=== PATIENT | male | born 1950 | race Caucasian/White ===

== ENCOUNTER 2018-08-05 06:55 | Outpatient (CLI) | payer MEDICARE ==
[~2018-08-05] VITALS: Ht 177.8 cm; Wt 68.0 kg
[~2018-08-05 06:55] MED LIST: ASPI-86 PO; ATOR80TA2 PO; CARV6.252 PO; CPR500T PO; LISI10TA PO; PHEN200T27 PO; TAMS0.4C2 PO
[2018-08-06] MEDS ORDERED: LORA10TA7 PO (09:59)
[2018-08-06] MEDS ORDERED: ASPI-808 PO (09:59)
[2018-08-06] MEDS ORDERED: MECL-106 PO (09:59)
[2018-08-06] MEDS ORDERED: GABA-486 PO (09:59)
[2018-08-06] MEDS ORDERED: UBID200C16 PO (09:59)
[2018-08-06] MEDS ORDERED: PANT40TA3 PO (09:59)
[2018-08-06] MEDS ORDERED: RANI150T46 PO (09:59)
[2018-08-06] MEDS ORDERED: ATOR40TA PO (09:59)
[2018-08-06] MEDS ORDERED: NITR0.4T39 SL (09:59)
[2018-08-06] MEDS ORDERED: AMLO5TAB4 PO (09:59)
[2018-08-06] MEDS ORDERED: FINA5TAB6 PO (09:59)
[2018-08-06] MEDS ORDERED: MONT10TA21 PO (09:59)
[2018-08-06] MEDS ORDERED: FLUT9.9S NS (09:59)
== END 2018-08-06 13:14 ==
LOC: PREOP 06:55
PROVIDERS: ATTEND Specialist
DX: Z01.818 Encounter for other preprocedural examination (principal)

== ENCOUNTER 2018-08-08 09:14 | Day surgery (SDC) | payer MEDICARE ==
[~2018-08-08] VITALS: Ht 177.8 cm; Wt 68.0 kg
[~2018-08-08 09:14] MED LIST changes: +AMLO5TAB4 PO; +ASPI-808 PO; +ATOR40TA PO; +FINA5TAB6 PO; +FLUT9.9S NS; +GABA-486 PO; +LORA10TA7 PO; +MECL-106 PO; +MONT10TA21 PO; +NITR0.4T39 SL; +PANT40TA3 PO; +RANI150T46 PO; +UBID200C16 PO
--- OUTSIDE RECORDS SUMMARY | 2018-08-08 09:17 | XMS REPORT ---
Author Author FOSTERCHUY GARNICA [facility] Address Unknown Care Team Providers Care Pc Installation Engineer Name Role Phone CHUY RAMOS Unavailable PROBLEMS Unknown Problems ALLERGIES No Information ENCOUNTERS Encounter Location Date Diagnosis [facility] [id number] [place] [address] [phone] Apr, Dental examination Z01.20 [facility] [address] [place] [address] [phone] Nov, Dental examination Z01.20 [facility] [id number] [place] [address] [phone] Nov, [facility] [id number] [place] [address] [phone] Oct, Dental examination Z01.20 [facility] [id number] [place] [address] [phone] Mar, Dental examination Z01.20 [facility] [id number] [place] [address] [phone] Feb, Dental examination Z01.20 [facility] [id number] [place] [address] [phone] Oct, Dental examination Z01.20 [facility] [id number] [place] [address] [phone] August, Dental examination Z01.20 [facility] [id number] [place] [address] [phone] Jul, Encounter for dental examination Z01.20 [facility] [id number] [place] [address] [phone] Jan, Encounter for dental examination Z01.20 [facility] [id number] [place] [address] [phone] Sep, Dental examination V72.2 [facility] [address] [id number] [place] [phone] August, Dental examination V72.2 IMMUNIZATIONS No Known Immunizations SOCIAL HISTORY Never Assessed REASON FOR VISIT Schedule appt. PLAN OF CARE VITAL SIGNS MEDICATIONS No Known Medications RESULTS No Results PROCEDURES No Known procedures INSTRUCTIONS MEDICATIONS ADMINISTERED No Known Medications MEDICAL (GENERAL) HISTORY Type Description Date Medical History open heart surgery 01/31/10 Medical History righr carotid artery 04-20-2011 Medical History arthritis Surgical History open heart 01-31-2010 Surgical History right carotid artery 04-20-2011 Hospitalization History Hospitalization for surgery only
--- OUTSIDE RECORDS SUMMARY | 2018-08-08 09:17 | XMS REPORT ---
Author MELY Holt [facility] eClinicalWorks Address Unknown Phone Unavailable Care Team Providers Care Quality Engineer Medical Device Name Role Phone MELY MARTINEZ CP Unavailable Allergies No Known Allergies Problems Problem Type Condition Code Onset Dates Condition Status Assessment Dental examination Z01.20 Active Problem Encounter for dental examination Z01.20 Active Medications No Known Medications Procedures Procedure Coding System Code Date Billing Notes on claim CPT-4 EC109 September 01, 2015 Results No Known Results Summary Purpose eClinicalWorks Submission
--- OUTSIDE RECORDS SUMMARY | 2018-08-08 09:17 | XMS REPORT ---
Author Author FOSTERCHUY GARNICA [facility] Address Unknown Care Team Providers Care Sheet Metal Assembler And Riveter Name Role Phone CHUY RAMOS Unavailable PROBLEMS Unknown Problems ALLERGIES Substance Reaction Event Type Date Status Sulfa Unknown Non Drug Allergy Nov, Active ENCOUNTERS Encounter Location Date Diagnosis [facility] [id number] [place] [address] [phone] Apr, Dental examination Z01.20 [facility] [address] [id number] [place] [address] [phone] Nov, Dental examination Z01.20 [facility] [address] [id number] [place] [address] [phone] Nov, [facility] [id number] [place] [address] [phone] Oct, Dental examination Z01.20 [facility] [id number] [place] [address] [phone] Mar, Dental examination Z01.20 [facility] [id number] [place] [address] [phone] Feb, Dental examination Z01.20 [facility] [address] [id number] [place] [address] [phone] Oct, Dental examination Z01.20 [facility] [address] [id number] [place] [address] [phone] August, Dental examination Z01.20 [facility] [address] [id number] [place] [address] [phone] Jul, Encounter for dental examination Z01.20 [facility] [address] [id number] [place] [address] [phone] Jan, Encounter for dental examination Z01.20 [facility] [address] [facility] [id number] [place] [phone] Sep, Dental examination V72.2 [facility] [address] [id number] [place] [phone] August, Dental examination V72.2 IMMUNIZATIONS No Known Immunizations SOCIAL HISTORY Never Assessed REASON FOR VISIT filling PLAN OF CARE Activity Details Follow Up prn Reason:6 MONTH PROPHY VITAL SIGNS Blood pressure systolic 124 mmHg 2016-12-04 Blood pressure diastolic 73 mmHg 2016-12-04 MEDICATIONS Medication Instructions Dosage Frequency Start Date End Date Duration Status Lisinopril Active Norvasc Active Aspir-81 Active Gabapentin Active Zyrtec Allergy 10 MG Orally Once a day 1 tablet 24h Active Simethicone Active Lipitor Active Meclizine HCl 25 MG Orally Once a day 1 tablet as needed 24h Active Flonase Active Tamsulosin HCl Active Finasteride Active RESULTS No Results PROCEDURES Procedure Date Ordered Result Body Site AMALGAM-ONE SURFACE PRIMARY/PERM Dec 04, 2016 INSTRUCTIONS MEDICATIONS ADMINISTERED No Known Medications MEDICAL (GENERAL) HISTORY Type Description Date Medical History open heart surgery 01/31/10 Medical History righr carotid artery 04-20-2011 Medical History arthritis Surgical History open heart 01-31-2010 Surgical History right carotid artery 04-20-2011 Hospitalization History Hospitalization for surgery only
--- OUTSIDE RECORDS SUMMARY | 2018-08-08 09:17 | XMS REPORT ---
Author Author CHUY RAMOS [facility] Address Unknown Care Team Providers Care Parks Recreation Coordinator Name Role Phone CHUY RAMOS Unavailable PROBLEMS Type Condition ICD9-CM Code DIP19-TI Code Onset Dates Condition Status SNOMED Code Problem Encounter for dental examination Z01.20 Active 354006847 ALLERGIES Substance Reaction Event Type Date Status Sulfa Unknown Non Drug Allergy Feb, Active SOCIAL HISTORY No smoking Hx information available PLAN OF CARE Activity Details Follow Up prn Reason:prophy VITAL SIGNS Blood pressure systolic 143 mmHg 2016-02-28 Blood pressure diastolic 90 mmHg 2016-02-28 MEDICATIONS Medication Instructions Dosage Frequency Start Date End Date Duration Status Aspir-81 Active Lipitor Active Lisinopril Active Gabapentin Active Carvedilol Active Tamsulosin HCl Active Finasteride Active Meclizine HCl 25 MG Orally Once a day 1 tablet as needed 24h Active RESULTS No Results PROCEDURES Procedure Date Ordered Related Diagnosis Body Site Dental no charge Feb 28, 2016 IMMUNIZATIONS No Known Immunizations
--- OUTSIDE RECORDS SUMMARY | 2018-08-08 09:17 | XMS REPORT ---
Author Author MELY MARTINEZ Organization eClinicalWorks Address Unknown Phone Unavailable Care Team Providers Care Quality Assurance Coordinator Name Role Phone MELY MARTINEZ CP Unavailable Allergies, Adverse Reactions, Alerts Substance Reaction Event Type Sulfa Info Not Available Non Drug Allergy Problems Problem Type Condition Code Onset Dates Condition Status Assessment Dental examination Z01.20 Active Problem Encounter for dental examination Z01.20 Active Medications Medication Code System Code Instructions Start Date End Date Status Dosage Loratadine [facility] [address]-84 10 MG Orally Once a day 1 tablet Tamsulosin HCl [facility] [address]-72 not defined Lisinopril [facility] [address]-23 not defined Lipitor [facility] [address]-35 not defined Aspir-81 [facility] [address]-14 not defined Carvedilol [facility] [address]-58 not defined Finasteride [facility] [address]-69 not defined Meclizine HCl [facility] [address]-66 25 MG Orally Once a day 1 tablet as needed Procedures Procedure Coding System Code Date RESIN COMPOS - 1 SURFACE POSTERIOR CPT-4 D2391 October 31, 2015 Billing Notes on claim CPT-4 EC109 October 31, 2015 AMALGAM-ONE SURFACE PRIMARY/PERM CPT-4 D2140 October 31, 2015 Vital Signs Date/Time: October 31, 2015 Blood Pressure Diastolic 84 mmHg Blood Pressure Systolic 147 mmHg Results No Known Results Summary Purpose eClinicalWorks Submission
--- OUTSIDE RECORDS SUMMARY | 2018-08-08 09:17 | XMS REPORT ---
Author Author ELIUD ERNANDEZ [facility] Address [address] [place] [address] Phone Unavailable Care Team Providers Care Green Belt Name Role Phone ELIUD ERNANDEZ Unavailable Unavailable PROBLEMS Unknown Problems ALLERGIES Substance Reaction Event Type Date Status Sulfa Unknown Non Drug Allergy Oct, Active ENCOUNTERS Encounter Location Date Diagnosis [facility] [id number] [place] [address] [phone] Apr, Dental examination Z01.20 [facility] [id number] [place] [address] [phone] Nov, Dental examination Z01.20 [facility] [address] [id number] [place] [address] [phone] Nov, [facility] [id number] [place] [address] [phone] Oct, Dental examination Z01.20 [facility] [id number] [place] [address] [phone] Mar, Dental examination Z01.20 [facility] [id number] [place] [address] [phone] Feb, Dental examination Z01.20 [facility] [id number] [place] [address] [phone] Oct, Dental examination Z01.20 [facility] [id number] [place] [address] [phone] August, Dental examination Z01.20 [facility] [address] [id number] [place] [address] [phone] Jul, Encounter for dental examination Z01.20 [facility] [address] [id number] [place] [phone] Jan, Encounter for dental examination Z01.20 [facility] [address] [facility] [id number] [place] [phone] Sep, Dental examination V72.2 [facility] [address] [id number] [place] [phone] August, Dental examination V72.2 IMMUNIZATIONS No Known Immunizations SOCIAL HISTORY Never Assessed REASON FOR VISIT 6 MO RECALL PLAN OF CARE Activity Details Follow Up [email or web address] Reason:restore VITAL SIGNS MEDICATIONS Medication Instructions Dosage Frequency Start Date End Date Duration Status Finasteride Active Tamsulosin HCl Active Meclizine HCl 25 MG Orally Once a day 1 tablet as needed 24h Active Zyrtec Allergy 10 MG Orally Once a day 1 tablet 24h Active Lisinopril Active Aspir-81 Active Carvedilol Active Flonase Active Lipitor Active Gabapentin Active Simethicone Active RESULTS No Results PROCEDURES Procedure Date Ordered Result Body Site PERIODIC ORAL EXAMINATION October 19, 2016 PROPHYLAXIS - ADULT October 19, 2016 INSTRUCTIONS MEDICATIONS ADMINISTERED No Known Medications MEDICAL (GENERAL) HISTORY Type Description Date Medical History open heart surgery 01/31/10 Medical History righr carotid artery 04-20-2011 Medical History arthritis Surgical History open heart 01-31-2010 Surgical History right carotid artery 04-20-2011 Hospitalization History Hospitalization for surgery only
--- OUTSIDE RECORDS SUMMARY | 2018-08-08 09:17 | XMS REPORT ---
Author Author ELIUD ERNANDEZ Organization [facility] Address [address] [place] [address] Phone Unavailable Care Team Providers Care Bore Mill Operator Name Role Phone ELIUD ERNANDEZ Unavailable Unavailable PROBLEMS Unknown Problems ALLERGIES Substance Reaction Event Type Date Status Sulfa Unknown Non Drug Allergy Jan, Active ENCOUNTERS Encounter Location Date Diagnosis [facility] [id number] [place] [address] [phone] Jan, Dental examination Z01.20 and Oral health maintenance status requiring routine preventive dental care K08.9 [facility] [id number] [place] [address] [phone] Apr, Dental examination Z01.20 [facility] [address] [id number] [place] [address] [phone] Nov, Dental examination Z01.20 [facility] [id number] [place] [phone] Nov, [facility] [id number] [place] [address] [phone] Oct, Dental examination Z01.20 [facility] [address] [id number] [place] [address] [phone] Mar, Dental examination Z01.20 [facility] [id number] [place] [address] [phone] Feb, Dental examination Z01.20 [facility] [id number] [place] [address] [phone] Oct, Dental examination Z01.20 [facility] [id number] [place] [address] [phone] August, Dental examination Z01.20 [facility] [address] [id number] [place] [address] [phone] Jul, Encounter for dental examination Z01.20 [facility] [address] [id number] [place] [phone] Jan, Encounter for dental examination Z01.20 [facility] [address] [id number] [place] [phone] Sep, Dental examination V72.2 [facility] [address] [id number] [place] [phone] August, Dental examination V72.2 IMMUNIZATIONS No Known Immunizations SOCIAL HISTORY Never Assessed REASON FOR VISIT 6 [facility] PLAN OF CARE Activity Details Follow Up 6 Months Reason:recall VITAL SIGNS Blood pressure systolic 120 mmHg 2018-02-05 Blood pressure diastolic 68 mmHg 2018-02-05 MEDICATIONS Medication Instructions Dosage Frequency Start Date End Date Duration Status Gabapentin Active Lipitor Active Finasteride Active Tamsulosin HCl Active Norvasc Active Lisinopril Not-Taking Meclizine HCl 25 MG Orally Once a day 1 tablet as needed 24h Active Simethicone Active Zyrtec Allergy 10 MG Orally Once a day 1 tablet 24h Active Flonase Active Aspir-81 Active Loratadine 10 MG Orally Once a day 1 tablet 24h Active Carvedilol Not-Taking RESULTS No Results PROCEDURES Procedure Date Ordered Result Body Site PERIODIC ORAL EXAMINATION Feb 05, 2018 BITEWINGS - FOUR FILMS Feb 05, 2018 TOPICAL FLUORIDE VARNISH Feb 05, 2018 PROPHYLAXIS - ADULT Feb 05, 2018 CARIES RISK ASSESS DOC FIND LOW RSK Feb 05, 2018 INSTRUCTIONS MEDICATIONS ADMINISTERED No Known Medications MEDICAL (GENERAL) HISTORY Type Description Date Medical History open heart surgery 01/31/10 Medical History righr carotid artery 04-20-2011 Medical History arthritis Surgical History open heart 01-31-2010 Surgical History right carotid artery 04-20-2011 Hospitalization History Hospitalization for surgery only
--- OUTSIDE RECORDS SUMMARY | 2018-08-08 09:18 | XMS REPORT ---
Author Author ELIUD ERNANDEZ [facility] Address [address] [address] Phone Unavailable Care Team Providers Care Grain Scooper Name Role Phone ELIUD ERNANDEZ Unavailable Unavailable PROBLEMS Type Condition ICD9-CM Code KBP02-PM Code Onset Dates Condition Status SNOMED Code Problem Encounter for dental examination Z01.20 Active [id number] ALLERGIES Substance Reaction Event Type Date Status Sulfa Unknown Non Drug Allergy Mar, Active SOCIAL HISTORY No smoking Hx information available PLAN OF CARE VITAL SIGNS Blood pressure systolic 146 mmHg 2016-03-27 Blood pressure diastolic 79 mmHg 2016-03-27 MEDICATIONS Medication Instructions Dosage Frequency Start Date End Date Duration Status Lisinopril Active Carvedilol Active Aspir-81 Active Gabapentin Active Finasteride Active Lipitor Active Tamsulosin HCl Active Zyrtec Allergy 10 MG Orally Once a day 1 tablet 24h Active Meclizine HCl 25 MG Orally Once a day 1 tablet as needed 24h Active RESULTS No Results PROCEDURES Procedure Date Ordered Related Diagnosis Body Site PROPHYLAXIS - ADULT Mar 27, 2016 TOPICAL FLUORIDE VARNISH Mar 27, 2016 IMMUNIZATIONS No Known Immunizations
--- OUTSIDE RECORDS SUMMARY | 2018-08-08 09:18 | XMS REPORT ---
Author CATHY Lopez Organization eClinicalWorks Address Unknown Phone Unavailable Care Team Providers Care Rn Transition Name Role Phone CATHY QUISPE CP Unavailable Allergies, Adverse Reactions, Alerts Substance Reaction Event Type Sulfa Info Not Available Non Drug Allergy Problems Problem Type Condition Code Onset Dates Condition Status Assessment Encounter for dental examination Z01.20 Active Problem Encounter for dental examination Z01.20 Active Medications Medication Code System Code Instructions Start Date End Date Status Dosage Tamsulosin HCl [facility] [address]-66 not defined Finasteride [facility] [address]-54 not defined Aspir-81 [facility] [address]-26 not defined Carvedilol [facility] [address]-40 not defined Lisinopril [facility] [address]-88 not defined Lipitor [facility] [address]-94 not defined Procedures Procedure Coding System Code Date TOPICAL FLUORIDE VARNISH CPT-4 D1206 Jan 10, 2015 PROPHYLAXIS - ADULT CPT-4 D1110 Jan 10, 2015 Vital Signs Date/Time: Jan 10, 2015 Blood Pressure Diastolic 92 mmHg Blood Pressure Systolic 159 mmHg Results No Known Results Summary Purpose eClinicalWorks Submission
--- OUTSIDE RECORDS SUMMARY | 2018-08-08 09:18 | XMS REPORT | Continuity of Care Document ---
Author Author [facility] Organization [facility] Address Unknown Phone Unavailable Care Team Providers Care .Net Developer Name Role Phone COLEEN RICK MD PP Insurance Providers Payer Name Policy Number Subscriber Name Relationship Unknown Crow [place] Advance Directives Directive Response Recorded Date Advance Directives N 11/12/12 5:25pm Problems No Known Problems or Medical conditions. Social History History Response Recorded Date/Time Alcohol Use Occasionally Uses 11/12/12 5: 25pm Recreational Drug Use N 11/12/12 5:25pm Allergies, Adverse Reactions, Alerts Allergen Type Severity Reaction Last Updated Sulfa (Sulfonamide Antibiotics) Allergy Intermediate HIVES 11/12/12 Medications Medication Dose Units Route Sig Qty Days Phenazopyridine HCl (Pyridium) 1 Each PO TID PRN 15 Tamsulosin Hcl 0.4 Mg PO DAILY Ciprofloxacin (Cipro Tablet (Non-Formulary)) 500 Mg PO BID Aspirin ([facility] Aspirin) 81 Mg PO DAILY Carvedilol 1 Each PO BID Atorvastatin Calcium (Lipitor) 80 Mg PO DAILY Lisinopril (Prinivil) 10 Mg PO DAILY Immunizations Name Given Type Date of Pneumonia Vaccine 01/06/10 H Response Recorded Date/Time Status not known Unknown Results No Known Relevant Diagnostic Tests, Laboratory Data and/or Discharge Summary. Encounters Encounter Location Date/Time Departed Emergency Room [facility] 10/18 5:24pm
--- OUTSIDE RECORDS SUMMARY | 2018-08-08 09:18 | XMS REPORT | Continuity of Care Document ---
Author Organization Unknown Address Unknown Allergies Active Description Code Type Severity Reaction Onset Reported/Identified Relationship to Patient Clinical Status Yes SULFA (SULFONAMIDE ANTIBIOTICS) SULFA (SULFONAMIDE A MODERATE Yes SULFA (SULFONAMIDE ANTIBIOTICS) MODERATE DERMATOLOGICAL - TEODORA Yes Sulfa (Sulfonamide Antibiotics) [id number] Drug Allergy Moderate HIVES 10/2012 Medications Medication Packaging Start Date Stop Date Route Dosage Sig ONDANSETRON VIAL INJ 4 MG/2CC (ZOFRAN 2CC VIAL) MG 10/13/2016 10/13/2016 PRN ONCE ASA 81MG CHEWABLE TAB 81 MG (BABY ASPIRIN) MG 11/17/2016 11/17/2016 ONCE&1524 ENOXAPARIN SYRINGE INJ 40 MG (LOVENOX SYRINGE) MG 11/17/2016 11/17/2016 ONCE&1708 LACTATED RINGERS 1000CC IV BAG INJ ml 11/21/2016 11/28/2016 CONTINUOUSEVERY 0 Hour CARVEDILOL TAB 6.25 MG (COREG) Dose(s) 11/27/2016 12/04/2016 BID&0800,2000 LISINOPRIL TAB 10 MG (ZESTRIL) Dose(s) 11/28/2016 12/04/2016 Daily&0900 LACTATED RINGERS 1000CC IV BAG INJ ml 11/30/2016 12/01/2016 CONTINUOUSEVERY 0 Hour Problems Date Dx Coded Attending Type Code Diagnosis Diagnosed By 10/13/2016 Alex Flores 530.81 ESOPHAGEAL REFLUX 10/13/2016 Alex Flores 564.00 CONSTIPATION, UNSPECIFIED 10/13/2016 Alex Flores 789.07 ABDOMINAL PAIN, GENERALIZED 10/13/2016 Alex Flores K21.9 GASTRO-ESOPHAGEAL REFLUX DISEASE WITHOUT ESOPHAGITIS 10/13/2016 Alex Flores K59.00 CONSTIPATION, UNSPECIFIED 10/13/2016 Alex Flores R10.84 GENERALIZED ABDOMINAL PAIN 11/17/2016 Brokob, Jordyn W 272.4 OTHER AND UNSPECIFIED HYPERLIPIDEMIA 11/17/2016 Jordyn Dennison W 401.0 MALIGNANT ESSENTIAL HYPERTENSION 11/17/2016 Jordyn Dennison W 414.01 CORONARY ATHEROSCLEROSIS OF [place] CORONARY ARTERY 11/17/2016 Jordyn Dennison A 780.4 11/17/2016 SiddharthabJordyn W 787.02 11/17/2016 Edmond Dennisonya W 790.5 OTHER NONSPECIFIC ABNORMAL SERUM ENZYME LEVELS 11/17/2016 Jordyn Dennison W E78.5 HYPERLIPIDEMIA, UNSPECIFIED 11/17/2016 Siddharthab, Jordyn W I10 ESSENTIAL (PRIMARY) HYPERTENSION 11/17/2016 Jordyn Dennison W I25.10 ATHSCL HEART DISEASE OF [place] CORONARY ARTERY W/O ANG PCTRS 11/17/2016 Siddharthajesus albertoJordyn W R11.0 NAUSEA 11/17/2016 Luis DanielJordyn pearce A R42 DIZZINESS AND GIDDINESS 11/17/2016 Siddharthajesus alberto Jordyn W R74.8 ABNORMAL LEVELS OF OTHER SERUM ENZYMES 11/30/2016 Wan Campbell W 530.81 ESOPHAGEAL REFLUX 11/30/2016 Wan Campebll W 535.50 UNSPECIFIED GASTRITIS AND GASTRODUODENITIS, WITHOUT MENTION OF HEMORRHAGE 11/30/2016 Wan Campbell W 552.3 DIAPHRAGMATIC HERNIA WITH OBSTRUCTION 11/30/2016 Wan Campbell W K21.9 GASTRO-ESOPHAGEAL REFLUX DISEASE WITHOUT ESOPHAGITIS 11/30/2016 Wan Campbell W K29.60 OTHER GASTRITIS WITHOUT BLEEDING 11/30/2016 Wan Campbell W K44.9 DIAPHRAGMATIC HERNIA WITHOUT OBSTRUCTION OR GANGRENE 08/13/2017 Omer Landrum W 789.00 ABDOMINAL PAIN, UNSPECIFIED SITE 08/13/2017 Omer Landrum W R10.9 UNSPECIFIED ABDOMINAL PAIN 08/13/2017 Omer Landrum W 789.00 ABDOMINAL PAIN, UNSPECIFIED SITE 08/13/2017 Omer Landrum W 911.4 INSECT BITE, NONVENOMOUS OF TRUNK, WITHOUT MENTION OF INFECTION 08/13/2017 Omer Landrum W R10.9 UNSPECIFIED ABDOMINAL PAIN 08/13/2017 Omer Landrum W S30.860A INSECT BITE (NONVENOMOUS) OF LOWER BACK AND PELVIS, INITIAL ENCOUNTER 08/13/2017 Landrum, Adamu W 401.9 08/13/2017 Landrum, Adamu W 461.9 ACUTE SINUSITIS, UNSPECIFIED 08/13/2017 Landrum, Caity-Maren W 536.8 DYSPEPSIA AND OTHER SPECIFIED DISORDERS OF FUNCTION OF STOMACH 08/13/2017 Landrum, Caity-Maren W 789.00 ABDOMINAL PAIN, UNSPECIFIED SITE 08/13/2017 Landrum, Caity-Maren W 790.5 08/13/2017 Landrum, Caity-Maren W 911.4 INSECT BITE, NONVENOMOUS OF TRUNK, WITHOUT MENTION OF INFECTION 08/13/2017 Landrum, Caity-Maren W I10 ESSENTIAL (PRIMARY) HYPERTENSION 08/13/2017 Landrum, Caity-Maren W J01.90 ACUTE SINUSITIS, UNSPECIFIED 08/13/2017 Landrum, Caity-Maren W K30 FUNCTIONAL DYSPEPSIA 08/13/2017 Landrum, Caity-Maren W R10.9 UNSPECIFIED ABDOMINAL PAIN 08/13/2017 Landrum, Caity-Maren W R74.8 ABNORMAL LEVELS OF OTHER SERUM ENZYMES 08/13/2017 Landrum, Caity-Maren W S30.860A INSECT BITE (NONVENOMOUS) OF LOWER BACK AND PELVIS, INITIAL ENCOUNTER 08/13/2017 Landrum, Adamu W 401.9 08/13/2017 Landrum, Caity-Maren W 461.9 ACUTE SINUSITIS, UNSPECIFIED 08/13/2017 Landrum, Caity-Maren W 536.8 08/13/2017 Landrum, Caity-Maren W 789.00 ABDOMINAL PAIN, UNSPECIFIED SITE 08/13/2017 Landrum, Caity-Maren W 790.5 08/13/2017 Landrum, Caity-Maren W 911.4 INSECT BITE, NONVENOMOUS OF TRUNK, WITHOUT MENTION OF INFECTION 08/13/2017 Landrum, Caity-Maren W I10 ESSENTIAL (PRIMARY) HYPERTENSION 08/13/2017 Landrum, Caity-Maren W J01.90 ACUTE SINUSITIS, UNSPECIFIED 08/13/2017 Landrum, Caity-Maren W K30 FUNCTIONAL DYSPEPSIA 08/13/2017 Landrum, Caity-Maren W R10.9 UNSPECIFIED ABDOMINAL PAIN 08/13/2017 Omer Landrum R74.8 ABNORMAL LEVELS OF OTHER SERUM ENZYMES 08/13/2017 Omer Landrum S30.860A INSECT BITE (NONVENOMOUS) OF LOWER BACK AND PELVIS, INITIAL ENCOUNTER 01/16/2018 Omer Landrum W 844.8 SPRAIN OF OTHER SPECIFIED SITES OF KNEE AND LEG 01/16/2018 Omer Landrum S86.112A STRAIN OF OTHER MUSCLE(S) AND TENDON(S) OF POSTERIOR MUSCLE GROUP AT LOWER LEG LEVEL, LEFT LEG, INITIAL ENCOUNTER 01/16/2018 Omer Landrum 844.8 SPRAIN OF OTHER SPECIFIED SITES OF KNEE AND LEG 01/16/2018 Omer Landrum S86.112A STRAIN OF OTHER MUSCLE(S) AND TENDON(S) OF POSTERIOR MUSCLE GROUP AT LOWER LEG LEVEL, LEFT LEG, INITIAL ENCOUNTER Procedures There is no data. Results Test Result Range Helicobacter Pylori - 06/01/16 11:55 H.Pylori Negative Negative Troponin I - 10/13/16 19:00 Troponin 0.022 ng/mL 0.000-0.400 Stress EKG - 11/05/16 07:40 Stress EKG Complete Protime - 11/16/16 11:28 INR 1.0 1.0-4.0 Protime 12.1 Sec 9.9-12.8 Comprehensive Metabolic Panel - 11/16/16 11:28 Albumin 4.3 g/dL 3.6-5.1 ALP 98 U/L 35-130 ALT 41 U/L 6-45 Anion Gap 12 6-14 AST 44 U/L 2-40 BUN 12 mg/dL 5-25 Calcium 10.1 mg/dL 8.3-10.4 Chloride 98 mmol/L 95-114 CO2 30 mEq/L 22-33 Creat 0.95 mg/dL 0.50-1.50 eGFR 79 mL/min/1.73m2 >59 Globulin 2.3 g/dL 2.3-3.5 Glucose 121 mg/dL 70-110 Osmo 282 280-295 Potassium 4.3 mmol/L 3.5-5.3 Sodium 136 mmol/L 134-148 TBil 0.7 mg/dL 0.2-1.2 TP 6.6 g/dL 6.0-8.3 Comprehensive Metabolic Panel - 11/17/16 15:14 Albumin 4.0 g/dL 3.6-5.1 ALP 101 U/L 35-130 ALT 40 U/L 6-45 Anion Gap 12 6-14 AST 44 U/L 2-40 BUN 15 mg/dL 5-25 Calcium 9.5 mg/dL 8.3-10.4 Chloride 100 mmol/L 95-114 CO2 28 mEq/L 22-33 Creat 1.18 mg/dL 0.50-1.50 eGFR 61 mL/min/1.73m2 >59 Globulin 2.1 g/dL 2.3-3.5 Glucose 153 mg/dL 70-110 Osmo 285 280-295 Potassium 4.3 mmol/L 3.5-5.3 Sodium 136 mmol/L 134-148 TBil 0.8 mg/dL 0.2-1.2 TP 6.1 g/dL 6.0-8.3 Urinalysis - 11/17/16 15:15 Icotest N/A Negative Urine Crystals Amorphous Material - 2+ Urine Volume Urine Volume Sufficient (10mL) Urine Yeast No Yeast present Urine-Appearance Clear Clear Urine-Bacteria Trace Urine-Bilirubin Negative Negative Urine-Blood Negative Negative Urine-Color Yellow Colorless-Lt. Yellow Urine-Epithelial Cells 0-5/HPF Urine-Glucose Negative Negative Urine-Ketones Negative Negative Urine-Leukocytes Negative Negative Urine-Nitrite Negative Negative Urine-pH 7.5 5-8.5 Urine-Protein 1+ Negative Urine-RBC 0-2/HPF Urine-Specific [place] 1.015 1.000-1.030 Urine-WBC 0-2/HPF Urobilinogen 0.2 E.U./dL 0.2-1.0 EKG - 11/17/16 17:30 EKG Complete Surgical Pathology - 11/30/16 09:49 Surg Path Sent to [place] [facility] Lipid Panel - 03/18/17 09:33 C/HDL 1.9 3.7-6.7 Cholesterol 170 mg/dL 100-240 HDL 88 mg/dL 30-85 LDL-Calculated 69 mg/dL 0-100 Trig 65 mg/dL 35-160 VLDL 13 mg/dL 0-42 Urinalysis - 05/03/17 14:38 Icotest N/A Negative Urine Volume Urine Volume Sufficient (10mL) Urine-Appearance Clear Clear Urine-Bilirubin Negative Negative Urine-Blood Trace-intact Negative Urine-Color Yellow Colorless-Lt. Yellow Urine-Glucose Negative Negative Urine-Ketones Negative Negative Urine-Leukocytes Negative Negative Urine-Nitrite Negative Negative Urine-Other Urine Saved if Culture Needed (48hrs from time of collection) Urine-pH 7.5 5-8.5 Urine-Protein Negative Negative Urine-RBC 0-2/HPF Urine-Specific [place] 1.015 1.000-1.030 Urine-WBC Negative Urobilinogen 0.2 E.U./dL 0.2-1.0 Lipid Panel - 06/28/17 09:03 C/HDL 2.0 3.7-6.7 Cholesterol 185 mg/dL 100-240 HDL 91 mg/dL 30-85 LDL-Calculated 75 mg/dL 0-100 Trig 93 mg/dL 35-160 VLDL 19 mg/dL 0-42 Creatine Kinase - 08/13/17 09:35 CK 1187 U/L 26-174 Lipid Panel - 06/04/18 08:16 C/HDL 2.0 3.7-6.7 Cholesterol 182 mg/dL 100-240 HDL 92 mg/dL 30-85 LDL-Calculated 77 mg/dL 0-100 Trig 66 mg/dL 35-160 VLDL 13 mg/dL 0-42 Encounters ACCT No. Visit Date/Time Discharge Status Pt. Type Provider Facility Loc./Unit Complaint [id number] 11/12/2012 17:24:00 11/12/2012 20:53:00 DIS Emergency [id number] 08/08/2018 10:45:00 PEN Preadmit CAPO LANCASTER, LALI [facility] CATARACT LEFT EYE [id number] 06/04/2018 08:06:00 06/04/2018 23:59:00 DIS Outpatient [id number] 04/29/2018 14:53:00 04/29/2018 14:53:00 CAN Outpatient UNLISTED, UNLISTED [id number] 01/16/2018 13:02:00 01/16/2018 23:59:00 DIS Outpatient Omer Landrum [id number] 08/13/2017 08:53:00 08/13/2017 23:59:00 DIS Outpatient Omer Landrum [id number] 06/28/2017 08:55:00 06/28/2017 23:59:00 DIS Outpatient Jian Escudero [id number] 05/03/2017 14:38:00 05/03/2017 23:59:00 DIS Outpatient Gifty Hernandez [id number] 03/18/2017 09:27:00 03/18/2017 23:59:00 DIS Outpatient PAULMeganJACINTO BALDERAS [id number] 12/18/2016 12:28:00 12/18/2016 23:59:00 DIS Outpatient PERRYSHERRIE, JACINTO [id number] 11/30/2016 00:00:00 11/30/2016 10:45:00 DIS Outpatient Adrian Luisroyal [id number] 11/21/2016 00:00:00 11/21/2016 00:00:00 CAN Outpatient Wan Campbell [id number] 11/17/2016 15:00:00 11/17/2016 17:45:00 DIS Outpatient Jordyn Dennison [id number] 11/16/2016 11:01:00 11/16/2016 23:59:00 DIS Outpatient Wan Campbell [id number] 11/05/2016 07:32:00 11/05/2016 23:59:00 DIS Outpatient Krystin Nolberto [id number] 10/13/2016 18:49:00 10/13/2016 22:00:00 [id number] 06/01/2016 11:30:00 06/01/2016 23:59:00 DIS Outpatient Landrum Omer [id number] 05/03/2017 10:56:56 Document Registration [id number] 10/13/2016 19:07:58 Document Registration [id number] 06/06/2018 09:20:00 06/06/2018 23:59:59 CLS Out[facility]
[2018-08-08 09:25] VITALS: BP 142/79
[2018-08-08] MEDS: TETRACAINE 0.5% OPHTH SOLN 4 ML BTL (SINGLE DOSE ONLY) OU PRN ×4 (09:28→09:54)
[2018-08-08] MEDS ORDERED: TIMOLOL MALEATE 0.5% 5 ML (TIMOPTIC) BTL OU PRN (09:30)
[2018-08-08] MEDS ORDERED: MOXIFLOXACIN OPHTH SOLN 5 MG/ML 0.3 ML SYRINGE OP ONE (09:30)
[2018-08-08] MEDS ORDERED: POVIDONE (BETADINE) OPHTH SOLN 5% 30 ML OP ONE (09:30)
[2018-08-08] MEDS ORDERED: LIDOCAINE PF 1% 2 ML AMP IR PRN (09:30)
[2018-08-08] MEDS ORDERED: ONDANSETRON 4 MG/2 ML (SDV) Z0FRAN ONE ×2 (09:34)
[2018-08-08] MEDS: CYCLOPENTOLATE 1% (CYCLOGYL) 2 ML DROPS OP SCH ×3 (09:42→09:54)
[2018-08-08] MEDS: PHENYLEPHRINE 10% OPHTH (NEO-SYN) 5 ML BTL OU SCH ×3 (09:42→09:54)
[2018-08-08] MEDS ORDERED: ONDANSETRON 4 MG/2 ML (SDV) Z0FRAN IV ONE (09:45)
[2018-08-08] MEDS ORDERED: MIDAZOLAM 2 MG/2 ML (VERSED) VIAL ONE (09:54)
--- NOTE | 2018-08-08 10:12 | Ophthalmologist Pre-Op Note ---
Pre-Operative Progress Note H&P Reviewed The H&P was reviewed, patient examined and no changes noted. Date H&P Reviewed: August 08, 2018 Time H&P Reviewed: 10:12 Pre-Op Dx Cataract, Left Eye LALI SCANLON MD August 08, 2018 10:12
--- NOTE | 2018-08-08 10:35 | Ophthalmology Operative Report ---
Cataract removal/placement IOL PREOPERATIVE DIAGNOSIS: Cataract Left Eye POSTOPERATIVE DIAGNOSIS: Cataract Left Eye PROCEDURE: Cataract removal and placement of posterior chamber implant, left eye SURGEON: Baljit Scanlon ANESTHESIA: Topical with sedation COMPLICATIONS: None ESTIMATED BLOOD LOSS: Minimal DESCRIPTION OF PROCEDURE: After proper informed consent was obtained, the patient, a 68 male, was taken to the Operating Room and the left eye was anesthetized with tetracaine. The left eye was then prepped and draped in the usual manner. A wire lid speculum was placed. A paracentesis was made at the left hand position. Preservative free lidocaine was injected into the anterior chamber followed by viscoelastic. A clear corneal incision was made in the temporal position. A capsulorrhexis was preformed and the central nuclear and cortical material were removed. The posterior capsule was polished and an Shane 22.0 [id number] was placed into the capsular bag. The residual viscoelastic was aspirated and balanced saline solution was injected into the anterior chamber. Moxifloxacin was injected into the anterior chamber. The wound was checked and found to be water tight. The patient tolerated the procedure well without complications. BALJIT SCANLON MD August 08, 2018 10:35
[2018-08-08 10:48] VITALS: BP 109/63
--- NOTE | 2018-08-08 10:58 | Anesthesia-General Post-Op ---
MAC Patient Condition Mental Status/LOC: Same as Preop Cardiovascular: Satisfactory Nausea/Vomiting: Absent Respiratory: Satisfactory Pain: Controlled Complications: Absent Post Op Complications Complications None Follow Up Care/Instructions Patient Instructions None needed. Anesthesiology Discharge Order Discharge Order Patient was seen after the procedure and he was doing well, no complaints, stable vital signs, no apparent adverse anesthesia problems. SIM NAIR DO August 08, 2018 10:58
== END 2018-08-08 10:48 | disposition home or self-care (01) ==
LOC: SDC 09:14
PROVIDERS: ATTEND Specialist
DX: H25.12 Age-related nuclear cataract, left eye (principal); I25.10 Atherosclerotic heart disease of native coronary artery without angina pectoris; I10 Essential (primary) hypertension; E78.00 Pure hypercholesterolemia, unspecified; K21.9 Gastro-esophageal reflux disease without esophagitis; Z87.891 Personal history of nicotine dependence; Z95.1 Presence of aortocoronary bypass graft; Z79.82 Long term (current) use of aspirin; Z79.899 Other long term (current) drug therapy

== ENCOUNTER → 2021-01-25 | Outpatient (CLI) | payer MEDICARE ==
[~2021-01-25] MED LIST changes: -MECL-106 PO; +MECL-149 PO; -PANT40TA3 PO; +PANT40TA52 PO; +RANI-613 PO; -RANI150T46 PO
--- NOTE | 2021-01-25 10:41 | Diagnostic Imaging Report ---
PROCEDURE: MRI lumbar spine. TECHNIQUE: Multiplanar, multisequence MRI of the lumbar spine was performed without contrast. INDICATION: Left leg numbness. FINDINGS: There is normal height and alignment of the lumbar vertebral bodies except for several millimeters of spondylolisthesis at L5-S1. There is loss of the intervertebral disc space at this level with no fluid or edema seen at this site. There is diffuse bulging of the disc at L4-L5 with degenerated facets resulting in a mild to moderate central canal stenosis. There is some foraminal narrowing at this level, right greater than left. The other levels show no focal disc herniation or significant stenosis. There is no mass or acute bony abnormality at any level. IMPRESSION: There are degenerative changes at L4-L5 and L5-S1 with no focal disc herniation seen. There is some stenosis present as described. Dictated by: Dictated on workstation # [id number]
--- NOTE | 2021-01-25 11:38 | Diagnostic Imaging Report ---
PROCEDURE: US Bilateral lower extremity arterial. TECHNIQUE: Multiple real-time grayscale images are obtained through both lower extremity arterial systems with color Doppler imaging and color Doppler spectral analysis. INDICATION: Peripheral arterial disease. Bilateral lower extremity claudication, left greater than right. Color Doppler velocity and spectral waveform analysis of the arteries of both lower extremity shows scattered calcified and noncalcified plaque with biphasic flow pattern seen throughout. No occlusions or high-grade stenoses are seen. IMPRESSION: No hemodynamically significant stenoses are identified. Dictated by: Dictated on workstation # [id number]
== END ==
LOC: RAD 09:30
PROVIDERS: ATTEND Physician Assistant
DX: M47.816 Spondylosis without myelopathy or radiculopathy, lumbar region (principal); M47.817 Spondylosis without myelopathy or radiculopathy, lumbosacral region; M48.061 Spinal stenosis, lumbar region without neurogenic claudication; I73.9 Peripheral vascular disease, unspecified
CPT/HCPCS: 72148; 93925

== ENCOUNTER → 2021-02-28 | Outpatient (CLI) | payer MEDICARE ==
--- NOTE | 2021-02-28 11:16 | Diagnostic Imaging Report ---
PROCEDURE: MR imaging cervical spine without contrast. TECHNIQUE: Multiplanar, multisequence MR imaging of the cervical spine was performed without contrast. DATE: February 28, 2021. COMPARISON: None. INDICATION: 70-year-old male, neck and upper back pain. FINDINGS: The alignment of the cervical spine is unremarkable. There is no evidence of a diffuse marrow infiltrating or replacing process. There is no identified focal concerning bone lesion. There is moderate to severe disc height loss at C3-C4 and C4-C5. There is moderate disc height loss at C4-C5. There is severe disc height loss at C5-C6. There are multilevel mild endplate degenerative changes of the cervical spine. There is no identified abnormal signal in the cervical spinal cord. C2-C3: There is a minimal posterior disc/osteophyte complex. There are right facet degenerative changes. There is moderate to severe right and moderate left foraminal narrowing. There is no spinal canal stenosis. C3-C4: There is a posterior disc/osteophyte complex. There are mild bilateral uncovertebral degenerative changes. There is moderate to severe bilateral foraminal narrowing. There is severe spinal canal stenosis. C4-C5: There is a small posterior disc/osteophyte complex. There are mild bilateral uncovertebral degenerative changes. There is severe right and moderate left foraminal narrowing. There is moderate to severe spinal canal stenosis. C5-C6: There is a very small posterior disc/osteophyte complex. The uncovertebral and facet joints are unremarkable. There is moderate right foraminal narrowing. There is no spinal canal stenosis. C6-C7: There is a posterior disc/osteophyte complex. There are bilateral uncovertebral degenerative changes. There is severe bilateral foraminal narrowing. There is severe spinal canal stenosis. C7-T1: There is no disc bulge. The uncovertebral and facet joints are unremarkable. There is no foraminal narrowing. There is no spinal canal stenosis. IMPRESSION: 1. Multilevel disc, uncovertebral, and facet degenerative changes of the cervical spine as described level by level above. 2. No identified focal concerning bone lesion. 3. No identified abnormal cord signal. Dictated by: Dictated on workstation # [id number]
--- NOTE | 2021-02-28 15:48 | Diagnostic Imaging Report ---
MRI THORACIC SPINE W/O CON INDICATION: Myelopathy. COMPARISON: Cervical spine MRI performed same day. TECHNIQUE: Multiplanar, multisequence MR imaging of the thoracic spine was performed FINDINGS: Normal kyphosis. No fracture deformity within the thoracic vertebrae. No marrow replacing process or Modic endplate changes. Incomplete fat suppression is present at the cranial and caudal aspects of the thoracic spine on T2-weighted fat-suppressed images. No spinal stenosis or neural foraminal narrowing. The thoracic cord is normal in size and signal. Specifically, there are no features that would suggest myelitis or demyelinating disease. Paravertebral musculature is normal. IMPRESSION: 1. Normal thoracic cord without features of myelitis or demyelinating disease. 2. No spinal stenosis. 3. No fracture in the thoracic spine. Dictated by: Dictated on workstation # [id number]
== END ==
LOC: RAD 09:30
PROVIDERS: ATTEND Orthopaedic Surgery Orthopaedic Surgery of the Spine
DX: M47.812 Spondylosis without myelopathy or radiculopathy, cervical region (principal); M48.02 Spinal stenosis, cervical region; M50.31 Other cervical disc degeneration, high cervical region; G95.9 Disease of spinal cord, unspecified
CPT/HCPCS: 72141; 72146